=== PATIENT | female | born 1975 | race Caucasian/White ===

== ENCOUNTER 2019-12-23 08:39 | Emergency (ER) | payer BC ==
[~2019-12-23] VITALS: Ht 167.6 cm; Wt 99.2 kg
[2019-12-23 08:40] VITALS: BP 138/91
[2019-12-23 09:27] LABS: BACTERIA,URINE 0 /HPF (0-FEW); BILIRUBIN,URINE NEG (NEG); CLARITY,URINE CLEAR; COLOR,URINE YELLOW; GLUCOSE,URINE 500 mg/dL (NEG); NITRITE,URINE NEG (NEG); SQUAMOUS EPITHELIAL CELL,UR FEW /LPF; UROBILINOGEN,URINE 0.2 mg/dL (0.2 mg/dL)
[2019-12-23] MEDS ORDERED: NAPR-682 PO (10:17)
--- NOTE | 2019-12-23 10:17 | PHYS DOC ---
Past History Past Medical History: Anxiety, Arthritis, Depression, Diabetes, Hypertension Additional Past Medical Histor: agoraphobia,neuropathy,sciatica pain,PMDD Past Surgical History: No Surgical History Alcohol Use: None Adult General Chief Complaint Chief Complaint: FLANK PAIN HPI HPI Patient is a 44-year-old female who presented to ER today for evaluation of left buttock pain. Patient said symptoms have been going on for 4 days, denies any injury, denies any bowel or bladder incontinence. Patient denies any numbness in her leg. Patient was thinking that she might have a urinary tract infection because her urine smell, she took her leftover antibiotic at home. The pain is getting worse when she sat on her buttock, the pain get better when she stand up. Patient denies any abdominal pain, no fever, no nausea vomiting. Review of Systems Review of Systems All other ROS is negative unless otherwise noted in HPI Allergies Allergies Allergies Coded Allergies Type Severity Reaction Last Updated Verified Penicillins Allergy Unknown 12/23/19 Yes Physical Exam Physical Exam See above Constitutional: Well developed, well nourished, no acute distress, non-toxic appearance. [] HENT: Normocephalic, atraumatic, bilateral external ears normal, oropharynx moist, no oral exudates, nose normal. [] Eyes: PERRLA, EOMI, conjunctiva normal, no discharge. [] Neck: Normal range of motion, no tenderness, supple, no stridor. [] Cardiovascular:Heart rate regular rhythm, no murmur [] Lungs & Thorax: Bilateral breath sounds clear to auscultation [] Abdomen: Bowel sounds normal, soft, no tenderness, no masses, no pulsatile masses. [] Skin: Warm, dry, no erythema, no rash. [] Back: No tenderness, no CVA tenderness. Left side buttock is tender to palpation, no swelling, no rash, no bruise. Extremities: No tenderness, no cyanosis, no clubbing, ROM intact, no edema. [] Neurologic: Alert and oriented X 3, normal motor function, normal sensory function, no focal deficits noted. [] Psychologic: Affect normal, judgement normal, mood normal. [] Current Patient Data Vital Signs Vital Signs Date Time Temp Pulse Resp B/P (MAP) Pulse Ox O2 Delivery O2 Flow Rate FiO2 12/23/19 08:40 97.8 106 22 138/91 (107) 100 12/23/19 08:39 Room Air Lab Results Laboratory Tests Test 12/23/19 08:46 Urine Collection Type Unknown Urine Color Yellow Urine Clarity Clear Urine pH 6.0 Urine Specific [place] 1.015 Urine Protein Neg (NEG-TRACE) Urine Glucose (UA) 500 mg/dL (NEG) Urine Ketones (Stick) Neg mg/dL (NEG) Urine Blood Neg (NEG) Urine Nitrite Neg (NEG) Urine Bilirubin Neg (NEG) Urine Urobilinogen Dipstick 0.2 mg/dL (0.2 mg/dL) Urine Leukocyte Esterase Neg (NEG) Urine RBC 1-2 /HPF (0-2) Urine WBC 1-4 /HPF (0-4) Urine Squamous Epithelial Cells Few /LPF Urine Bacteria 0 /HPF (0-FEW) EKG EKG [] Radiology/Procedures Radiology/Procedures [] Course & Med Decision Making Course & Med Decision Making Pertinent Labs and Imaging studies reviewed. (See chart for details) Patient is a 44-year-old female who was evaluated in the ER due to left buttock pain, consistent with sciatica. Patient's UA did not show infection. Patient had no injury,. No x-ray needed. The pain is worse when she sitting on left buttock, pain is better with standing. Dragon Disclaimer Dragon Disclaimer This electronic medical record was generated, in whole or in part, using a voice recognition dictation system. Departure Departure: Impression: Primary Impression: Acute left-sided back pain with sciatica Disposition: HOME, SELF-CARE Condition: STABLE Referrals: ALMAZ MILLARD MD (PCP) FOLLOW UP WITH YOUR DOCTOR THIS WEEK FOR REEVALUATION Patient Instructions: Sciatica Scripts Naproxen Sodium (ANAPROX DS) 550 Mg Tablet 1 TAB PO BID for PAIN for 10 Days, #20 TAB 0 Refills Prov: GEORGINA LAIRD DO 12/23/19 GEORGINA LAIRD DO Dec 23, 2019 10:17
== END 2019-12-23 10:20 | disposition home or self-care (01) ==
LOC: ER 08:39
DX: M54.42 Lumbago with sciatica, left side (principal); I10 Essential (primary) hypertension; E11.9 Type 2 diabetes mellitus without complications; Z88.0 Allergy status to penicillin
CPT/HCPCS: 81001; 99283